=== PATIENT | male | born 1990 | race American Indian/Alaskan Native ===

== ENCOUNTER 2022-12-13 04:53 | Emergency (ER) | payer OTHER ==
[2022-12-13] MEDS ORDERED: Sodium Chloride 0.9% 10 ML Syringe FLUSH PRN (04:59)
[2022-12-13] MEDS ORDERED: Morphine 4 MG/ML VIAL IVPUSH ONE ×3 (05:01→06:35)
[2022-12-13 05:12] LABS: HEMATOCRIT 41.6 % (38.3-50.1); MEAN CORPUSCULAR HEMOGLOBIN 30.9 pg (27.0-33.3); MEAN CORPUSCULAR HGB CONC 33.7 g/dL (28.7-35.3); MEAN CORPUSCULAR VOLUME 91.6 fL (80.8-98.7); MEAN PLATELET VOLUME 6.8 fL (6.7-11.0); PLATELET COUNT,PLT 347 x10(3)uL (117-477); RED BLOOD CELL COUNT 4.54 x10(6)uL (3.90-5.90); RED CELL DISTRIBUTION WIDTH 15.4 % (12.4-15.0); WHITE BLOOD CELL COUNT,WBC 15.9 x10-3/uL (3.2-10.1)
[2022-12-13] MEDS ORDERED: Diphtheria,Pertussis(Acell),Tetanus Vaccine 0.5 ML Syringe IM ONE (05:13)
[2022-12-13] MEDS ORDERED: Sodium Chloride 0.9% 1,000 ML IV SCH ×2 (05:15→06:15)
[2022-12-13 05:21] LABS: INR 1.09 (1.00-1.24); PROTHROMBIN TIME 11.2 sec (9.0-11.1)
[2022-12-13 05:22] LABS: A/G RATIO 0.9; ALANINE AMINOTRANSFERASE,ALT 86 U/L (12-36); ALBUMIN 3.7 g/dL (3.5-5.2); ALKALINE PHOSPHATASE 104 IU/L (56-112); BILIRUBIN TOTAL 0.4 mg/dL (0.1-1.3); BLOOD UREA NITROGEN,BUN 10 mg/dL (7-18); BUN/CREATININE RATIO 8.3 (9-20); CALCIUM 8.3 mg/dL (8.6-10.2); CARBON DIOXIDE,CO2 24 mmol/L (21-32); CHLORIDE,CL 100 mmol/L (100-110); CREATININE 1.2 mg/dL (0.70-1.30); ESTIMATED GFR 82 mL/min (>60); GLUCOSE RANDOM 140 mg/dL (80-116); POTASSIUM,K 3.8 mmol/L (3.5-5.3); PROTEIN TOTAL,TP 7.7 g/dL (6.0-8.0); SODIUM,NA 136 mmol/L (135-145)
[2022-12-13 05:23] LABS: PTT,PARTIAL THROMBOPLSTIN TIME 23.4 SECONDS (24.4-33.2)
[2022-12-13 05:25] LABS: ASPARTATE AMNIOTRANSFERASE,AST 169 IU/L (5-25)
[2022-12-13 05:37] LABS: BAND PERCENT MAN 2 % (0-6); LYMPHOCYTES PERCENT MAN 9 % (13-37); MONOCYTES PERCENT MAN 5 % (4-12); SEG NEUTROPHILS PERCENT MAN 84 % (46-82)
[2022-12-13] MEDS ORDERED: Iopamidol 755 Mg/ML 100 ML Bottle IV ONE (05:55)
[2022-12-13 06:15] LABS: THC SCREEN,URINE POSITIVE (NEGATIVE)
[2022-12-13 06:16] LABS: AMPHETAMINES SCREEN, URINE POSITIVE (NEGATIVE); BARBITURATE SCREEN,URINE NEGATIVE (NEGATIVE); BENZODIAZEPINES SCREEN,URINE NEGATIVE (NEGATIVE); METHADONE SCREEN, URINE NEGATIVE (NEGATIVE); METHAMPHETAMINE SCREEN, URINE POSITIVE (NEGATIVE); OXYCODONE SCREEN,URINE NEGATIVE (NEGATIVE)
[2022-12-13 06:17] LABS: BUPRENORPHINE SCREEN,URINE NEGATIVE (NEGATIVE)
[2022-12-13] MEDS ORDERED: Naloxone 0.4 MG/ML SDV IVPUSH PRN (06:35)
== END 2022-12-13 06:45 ==
LOC: FB.ED 04:53
DX: S42.009A Fracture of unspecified part of unspecified clavicle, initial encounter for closed fracture (principal); S32.000A Wedge compression fracture of unspecified lumbar vertebra, initial encounter for closed fracture; S22.000A Wedge compression fracture of unspecified thoracic vertebra, initial encounter for closed fracture; S27.0XXA Traumatic pneumothorax, initial encounter; S27.329A Contusion of lung, unspecified, initial encounter; V89.2XXA Person injured in unspecified motor-vehicle accident, traffic, initial encounter; Y92.59 Other trade areas as the place of occurrence of the external cause
CPT/HCPCS: 36415; 51702; 70450; 70486; 71260; 72125; 72128; 72131; 73020-RT; 74177; 80053; 80307; 85025; 85610; 85730; 90471; 90715; 93005; 96361; 96374; 96376; 99291-25; G0390; J2270; J7030; Q9967